=== PATIENT | male | born 1965 | race African-American/Black ===

== ENCOUNTER 2019-08-13 00:45 | Emergency (ER) | payer SELFPAY ==
[~2019-08-13] VITALS: Ht 182.9 cm; Wt 91.0 kg
[2019-08-13 00:49] VITALS: BP 136/78
== END 2019-08-13 03:32 | disposition home or self-care (01) ==
LOC: ER 00:45
DX: F16.10 Hallucinogen abuse, uncomplicated (principal); F14.10 Cocaine abuse, uncomplicated
CPT/HCPCS: 99283

== ENCOUNTER 2019-08-13 06:05 | Emergency (ER) | payer OTHER ==
[~2019-08-13] VITALS: Ht 182.9 cm; Wt 91.0 kg
[2019-08-13] MEDS ORDERED: ACETAMINOPHEN 325MG TABLET PO ONE (11:30)
[2019-08-13 11:54] LABS: BASOPHILS % 0.5 % (0.0-2.0); EOSINOPHILS % 0.9 % (0.0-5.0); HEMATOCRIT. 46.7 % (42.0-52.0); HEMOGLOBIN. 15.7 g/dL (14.0-18.0); LYMPHOCYTES % 16.8 % (20.0-50.0); MEAN CORPUSCULAR HEMOGLOBIN 31.2 pg (28.0-32.0); MEAN CORPUSCULAR VOLUME 92.9 fL (80.0-94.0); MEAN PLATELET VOLUME 10.2 fl (7.4-10.4); MONOCYTES % 10.1 % (2.0-8.0); NEUTROPHILS % 71.7 % (40.0-76.0); PLATELET 130 x1000/uL (130-400); RED BLOOD CELL COUNT 5.02 mill/uL (4.7-6.1); RED CELL DISTRIBUTION WIDTH 13.5 % (11.6-14.6)
[2019-08-13 11:59] LABS: CHLORIDE 105 mEq/L (98-107)
[2019-08-13 15:07] VITALS: BP 135/74
== END 2019-08-13 15:11 | disposition home or self-care (01) ==
LOC: ER 06:05
DX: R07.89 Other chest pain (principal); I10 Essential (primary) hypertension; F16.10 Hallucinogen abuse, uncomplicated; F17.210 Nicotine dependence, cigarettes, uncomplicated
CPT/HCPCS: 36415; 71045; 83880; 84484; 93005; 99284

== ENCOUNTER 2024-04-21 06:43 | Inpatient (IN) | payer MEDICAID, OTHER ==
[~2024-04-21] VITALS: Ht 188 cm; Wt 88.1 kg
[2024-04-21] VITALS (10 sets, daily range): BP systolic 103–126; BP diastolic 83–97; PULSE 92–106; RESP 28–38; TEMP 36.8072–37.00296; O2SAT 98–100
[2024-04-21] MEDS ORDERED: FUROSEMIDE 100MG/10ML VIAL IVP ONE (07:30)
[2024-04-21 08:08] LABS: CHLORIDE 108 mEq/L (98-107); POTASSIUM 4.1 mEq/L (3.5-5.1); SODIUM 138 mEq/L (136-145)
[2024-04-21 08:09] LABS: CARBON DIOXIDE 25 mEq/L (21-32)
[2024-04-21 08:10] LABS: BASOPHILS % 0.8 % (0.0-2.0); CALCIUM 9.3 mg/dL (8.7-10.4); HEMATOCRIT. 40.9 % (42.0-52.0); HEMOGLOBIN. 13.2 g/dL (14.0-18.0); LYMPHOCYTES % 29.8 % (20.0-50.0); MEAN CORPUSCULAR HEMOGLOBIN 30.5 pg (28.0-32.0); MEAN CORPUSCULAR HGB CONC 32.2 g/dL (31.0-37.0); MEAN CORPUSCULAR VOLUME 94.8 fL (80.0-94.0); MONOCYTES % 6.6 % (2.0-8.0); NEUTROPHILS % 61.8 % (40.0-76.0); PLATELET 174 x1000/uL (130-400); RED BLOOD CELL COUNT 4.32 mill/uL (4.7-6.1); WHITE BLOOD COUNT 6.2 x1000/uL (4.5-11.0)
[2024-04-21] MEDS: FUROSEMIDE 40MG/4ML VIAL IVP NR (08:13)
[2024-04-21] MEDS: MAGNESIUM 2 G PREMIX 50 ML IV ONE (08:13)
[2024-04-21 08:14] LABS: GLUCOSE 99 mg/dL (70-105); UREA NITROGEN BLOOD 11 mg/dL (9-23)
[2024-04-21 08:32] LABS: TROPONIN I HIGH SENSITIVITY 60 ng/L (3.0-53)
[2024-04-21] MEDS ORDERED: ONDANSETRON HCL 4MG/2ML INJ IV PRN (09:45)
[2024-04-21] MEDS ORDERED: DIPHENHYDRAMINE 50MG/ML VIAL IV PRN (09:45)
[2024-04-21] MEDS ORDERED: IPRATROPIUM/ALBUTEROL 0.5-3(2.5)MG/3ML NEB HHN PRN (09:45)
[2024-04-21] MEDS: CEFTRIAXONE 1GM/50ML 50 ML IV SCH (10:00)
[2024-04-21] MEDS: AZITHROMYCIN 500MG/250ML IV SCH (10:00)
[2024-04-21] MEDS ORDERED: AZITHROMYCIN 500 MG in DEXT 5% WATER 250 ML IV SCH (10:00)
[2024-04-21 10:14] LABS: TROPONIN I HIGH SENSITIVITY 62 ng/L (3.0-53)
[2024-04-22] VITALS (16 sets, daily range): BP systolic 102–142; BP diastolic 75–110; PULSE 88–108; RESP 18–32; TEMP 36.83628–37.00296; O2SAT 96–100
[2024-04-22] MEDS: IPRATROPIUM/ALBUTEROL 0.5-3(2.5)MG/3ML NEB HHN SCH (08:22)
[2024-04-22 08:29] LABS: BG BASE EXCESS 1.8 mmol/L (-2.0-2.0); BG CARBOXYHEMOGLOBIN 0.9 % (0.5-1.5); BG DEOXYHEMOGLOBIN 1.5 % (0.0-5.0); BG FRACTION INSPIRED OXYGEN 35; BG HCO3 ACT 25.5 mmol/L (22.0-26.0); BG METHEMOGLOBIN 0.1 % (0.0-1.5); BG OXYGEN SATURATION 98.5 % (92.0-98.5); BG OXYHEMOGLOBIN 97.5 % (94.0-97.0); BG PH 7.456 (7.350-7.450); BG PO2 116.1 mmHg (75.0-100.0); BG SAMPLE SITE RIGHT BRACHIAL; BG TOTAL RESPIRATORY RATE 34 b/min; BG VENT MODE MASK - BIPAP
[2024-04-22 08:32] LABS: BASOPHILS % 0.6 % (0.0-2.0); DIFFERENTIAL COMMENT 0; EOSINOPHILS % 1.1 % (0.0-5.0); HEMOGLOBIN. 13.2 g/dL (14.0-18.0); LYMPHOCYTES % 19.8 % (20.0-50.0); MEAN CORPUSCULAR HEMOGLOBIN 30.3 pg (28.0-32.0); MEAN CORPUSCULAR HGB CONC 32.1 g/dL (31.0-37.0); MEAN CORPUSCULAR VOLUME 94.4 fL (80.0-94.0); MEAN PLATELET VOLUME 10.9 fl (7.4-10.4); MONOCYTES % 6.5 % (2.0-8.0); PLATELET 167 x1000/uL (130-400); RED BLOOD CELL COUNT 4.34 mill/uL (4.7-6.1); RED CELL DISTRIBUTION WIDTH 15.1 % (11.6-14.6); WHITE BLOOD COUNT 7.6 x1000/uL (4.5-11.0)
[2024-04-22 08:48] LABS: CARBON DIOXIDE 29 mEq/L (21-32); CHLORIDE 106 mEq/L (98-107); POTASSIUM 3.8 mEq/L (3.5-5.1); SODIUM 139 mEq/L (136-145)
[2024-04-22 08:49] LABS: CALCIUM 9.2 mg/dL (8.7-10.4)
[2024-04-22 08:54] LABS: CREATININE 1.2 mg/dL (0.6-1.3); GLUCOSE 117 mg/dL (70-105); UREA NITROGEN BLOOD 15 mg/dL (9-23)
[2024-04-22] MEDS: CEFTRIAXONE 1GM/50ML 50 ML IV SCH (10:40)
[2024-04-22] MEDS: CLONIDINE 0.1MG TABLET PO PRN (11:27)
[2024-04-22] MEDS: ASPIRIN 81MG TABLET PO SCH (11:59)
[2024-04-22] MEDS: ATORVASTATIN CALCIUM 20MG TABLET PO SCH (21:02)
[2024-04-23] VITALS (14 sets, daily range): BP systolic 103–144; BP diastolic 69–120; PULSE 85–111; RESP 14–35; TEMP 36.55848–37.00296; O2SAT 92–100
[2024-04-23] MEDS: ACETAMINOPHEN 325MG TABLET PO PRN (08:21)
[2024-04-23] MEDS ORDERED: ASPI-1160 PO (12:47)
[2024-04-23] MEDS ORDERED: ATOR20TA PO (12:47)
[2024-04-23] MEDS: LIDOCAINE 5% PATCH TOP SCH (14:30)
[2024-04-23] MEDS ORDERED: PNEUMOCOCCAL 23-VAL P-SAC VAC 0.5 ML IM ONE (15:00)
[2024-04-23] MEDS: LOSARTAN 100 MG TABLET PO SCH (19:01)
[2024-04-23] MEDS: SPIRONOLACTONE 25MG TABLET PO SCH (19:02)
[2024-04-23] MEDS: CARVEDILOL 6.25 MG TABLET PO SCH (20:19)
[2024-04-24] VITALS (7 sets, daily range): BP systolic 109–137; BP diastolic 83–96; PULSE 80–102; RESP 12–30; TEMP 36.33624–36.55848; O2SAT 94–100
[2024-04-24 09:35] LABS: *AMPHETAMINES SCREEN URINE NEGATIVE (NEGATIVE); *BARBITURATES SCREEN URINE NEGATIVE (NEGATIVE); *BENZODIAZEPINES SCREEN URINE NEGATIVE (NEGATIVE); *COCAINE SCREEN URINE PRESUMPTIVE POSITIVE (NEGATIVE)
[2024-04-24 09:36] LABS: CANNABINOID URINE SCREEN NEGATIVE (NEGATIVE); ECSTASY MDMA SCREEN URINE NEGATIVE (NEGATIVE); METHADONE URINE SCREEN NEGATIVE (NEGATIVE); OPIATES URINE SCREEN NEGATIVE (NEGATIVE); PHENCYCLIDINE URINE SCREEN NEGATIVE (NEGATIVE)
[2024-04-24] MEDS ORDERED: LOSA100T33 PO (12:38)
[2024-04-24] MEDS ORDERED: SPIR25TA PO (12:38)
[2024-04-24] MEDS ORDERED: COR6 PO (12:38)
== END 2024-04-24 14:00 | disposition home or self-care (01) | DRG 140 ==
LOC: ER 06:43 → 5EST 08:36 → EDBEDREQTM 08:59 → EDBEDREQSVC 08:59 → EDBEDREQ 08:59
PROVIDERS: ADMIT Internal Medicine; ATTEND Internal Medicine
PROC: 5A09357 Assistance with Respiratory Ventilation, Less than 24 Consecutive Hours, Continuous Positive Airway Pressure (ICD-10-PCS; principal; 2024-04-21)
PROC: 5A09357 Assistance with Respiratory Ventilation, Less than 24 Consecutive Hours, Continuous Positive Airway Pressure (ICD-10-PCS; 2024-04-22)
DX: J44.0 Chronic obstructive pulmonary disease with (acute) lower respiratory infection (principal); J96.00 Acute respiratory failure, unspecified whether with hypoxia or hypercapnia; I50.23 Acute on chronic systolic (congestive) heart failure; J18.9 Pneumonia, unspecified organism; I42.0 Dilated cardiomyopathy; I11.0 Hypertensive heart disease with heart failure; J44.1 Chronic obstructive pulmonary disease with (acute) exacerbation; F17.200 Nicotine dependence, unspecified, uncomplicated; E78.5 Hyperlipidemia, unspecified; F17.210 Nicotine dependence, cigarettes, uncomplicated
CPT/HCPCS: 36415; 36600; 71045; 80048; 80305; 82375; 82805; 83880; 84145; 84484; 85025; 90732; 93005; 93306; 93970; 94640; 94660; 99291; J0456; J0696; J1940; J3475; J7060

== ENCOUNTER 2025-07-29 16:35 | Emergency (ER) | payer MEDICAID ==
[~2025-07-29] VITALS: Ht 188 cm; Wt 91.0 kg
[~2025-07-29 16:35] MED LIST: ASPI-1160 PO; ATOR20TA PO; COR6 PO; LOSA100T33 PO; SPIR25TA PO
[2025-07-29 16:38] VITALS: O2SAT 99
[2025-07-29 16:46] VITALS: BP 114/71; PULSE 91; RESP 16; TEMP 36.7; O2SAT 100
== END 2025-07-29 20:42 | disposition left against medical advice (07) ==
LOC: ER 16:35
DX: M54.9 Dorsalgia, unspecified (principal); M54.2 Cervicalgia; Z53.21 Procedure and treatment not carried out due to patient leaving prior to being seen by health care provider
CPT/HCPCS: 99281